=== PATIENT | female | born 1960 | race Caucasian/White ===

== ENCOUNTER 2021-09-26 14:59 | Day surgery (SDC) | payer OTHER ==
[2021-09-26] MEDS ORDERED: BUPIVACAINE 0.5% VIAL IJ ONE (15:00)
[2021-09-26] MEDS ORDERED: Depo-Medrol 40 MG/ML IM ONE (15:00)
[2021-09-26] MEDS ORDERED: Lactated Ringers 1,000 ML IV ONE (17:34)
[2021-09-26] MEDS ORDERED: DIPRIVAN 200 MG/20 ML IV ONE (17:58)
--- NOTE | 2021-09-26 19:23 | XRAY ---
Indication: Left SI joint injection. Intraoperative fluoroscopy provided for 10 seconds. 2 digital spot image submitted for interpretation demonstrates posterior needle tip projecting over the inferior left SI joint. Correlate with intraoperative findings/report.
--- NOTE | 2021-09-27 11:54 | XRAY ---
10 seconds fluoroscopy time in surgery for injection of the left SI joint.
== END 2021-09-26 18:39 | disposition home or self-care (01) ==
LOC: SDC-PAIN 14:59
PROVIDERS: ATTEND Psychiatry & Neurology Pain Medicine
DX: M46.1 Sacroiliitis, not elsewhere classified (principal); Z72.0 Tobacco use
CPT/HCPCS: 27096; 72020; 77002; G0260; J1030; J2704

== ENCOUNTER 2021-10-17 14:03 | Day surgery (SDC) | payer OTHER ==
[2021-10-17] MEDS ORDERED: Depo-Medrol 40 MG/ML IM ONE (14:04)
[2021-10-17] MEDS ORDERED: BUPIVACAINE 0.5% VIAL IJ ONE (14:04)
[2021-10-17] MEDS ORDERED: Lactated Ringers 1,000 ML IV ONE (15:26)
[2021-10-17] MEDS ORDERED: DIPRIVAN 200 MG/20 ML IV ONE (15:43)
--- NOTE | 2021-10-17 16:42 | XRAY ---
Indication: Left greater trochanter bursa injection. Intraoperative fluoroscopy provided for 11 seconds. Single digital spot image submitted for interpretation demonstrates needle tip projecting just lateral to the left greater trochanter. Small amount of contrast injected for needle tip placement. Correlate with intraoperative findings/report.
--- NOTE | 2021-10-17 16:57 | XRAY ---
11 seconds fluoroscopy time in surgery for injection of the greater trochanter of the left hip.
== END 2021-10-17 15:57 | disposition home or self-care (01) ==
LOC: SDC-PAIN 14:03
PROVIDERS: ATTEND Psychiatry & Neurology Pain Medicine
DX: M16.12 Unilateral primary osteoarthritis, left hip (principal); J44.9 Chronic obstructive pulmonary disease, unspecified; I10 Essential (primary) hypertension; Z79.899 Other long term (current) drug therapy
CPT/HCPCS: 20610; 73501; 77002; J1030; J2704; Q9966